=== PATIENT | female | born 1995 ===

== ENCOUNTER 2017-09-05 17:59 | Emergency (ER) | payer MEDICAID ==
[2017-09-05 18:32] VITALS: RESP 18; TEMP 98.5
--- NOTE | 2017-09-05 19:40 | ED PDOC ---
HPI: Female Pain Time Seen by Provider: 09/05/17 19:00 Chief Complaint (Nursing): Female Genitourinary Chief Complaint (Provider): Abdominal pain, vaginal bleeding History Per: Patient History/Exam Limitations: no limitations Onset/Duration Of Symptoms: Days (3 days) Current Symptoms Are (Timing): Constant Quality Of Discomfort: Pressure Associated Symptoms: denies: Urinary Symptoms Additional Complaint(s): Patient is a 22 y/o female who is 5 weeks with a past history of two miscarriages, who presents to the ED complaining of lower abdominal pain described as constant with associated vaginal bleeding, onset 3 days. Patient reports the pain felt like "pressure" since yesterday, and that bleeding became heavier. She denies any urinary symptoms. PCP: FAMILY PROVIDER, NO Abnormal Vaginal Bleeding: Yes Miscarriage: 2 Past Medical History Reviewed: Historical Data, Nursing Documentation, Vital Signs Vital Signs: Last Vital Signs Temp 98.5 F 09/05/17 18:30 Pulse 89 09/05/17 18:30 Resp 18 09/05/17 18:30 BP 123/68 09/05/17 18:30 Pulse Ox 100 09/05/17 18:30 - Medical History PMH: No Chronic Diseases - Surgical History Surgical History: No Surg Hx - Family History Family History: States: No Known Family Hx - Social History Current smoker - smoking cessation education provided: No Ex-Smoker (has not smoked in the last 12 months): Yes (2 cigarettes per day) Alcohol: None - Allergies Allergies/Adverse Reactions: Allergies Allergy/AdvReac Type Severity Reaction Status Date / Time No Known Allergies Allergy Verified 09/05/17 18:29 Review of Systems ROS Statement: Except As Marked, All Systems Reviewed And Found Negative Gastrointestinal: Positive for: Abdominal Pain (lower) Genitourinary Female: Positive for: Vaginal Bleeding. Negative for: Dysuria, Hematuria Physical Exam - Reviewed Nursing Documentation Reviewed: Yes Vital Signs Reviewed: Yes - Physical Exam Appears: Positive for: No Acute Distress Head Exam: Positive for: ATRAUMATIC, NORMOCEPHALIC Skin: Positive for: Normal Color, Warm, Dry Eye Exam: Positive for: Normal appearance, EOMI, PERRL Neck: Positive for: Normal, Painless ROM, Supple Cardiovascular/Chest: Positive for: Regular Rate, Rhythm. Negative for: Murmur Respiratory: Positive for: Normal Breath Sounds. Negative for: Respiratory Distress Gastrointestinal/Abdominal: Positive for: Soft, Tenderness (mild suprapubic tenderness) Back: Positive for: Normal Inspection. Negative for: L CVA Tenderness, R CVA Tenderness, Vertebral Tenderness Extremity: Positive for: Normal ROM. Negative for: Pedal Edema, Deformity Neurologic/Psych: Positive for: Alert, Oriented (x3). Negative for: Motor/ Sensory Deficits - Laboratory Results Result Diagrams: 09/05/17 20:27 09/05/17 20:27 - ECG O2 Sat by Pulse Oximetry: 100 (RA) Pulse Ox Interpretation: Normal Medical Decision Making Medical Decision Making: Time: 19:37 Initial Impression: rule out Threatened AB, ectopic Initial Plan: --Type and screen --BMP --ED Urine --ED Urine Dipstick --CBC --Urinalysis --OB PREG 1st TRI & OB Trnasvag US Time: 23:11 --Pelvic exam performed with Azalia Saavedra rn serving as wireless cellular technician --Small amount of spotting but no clots. Left adnexa is tender on bimanual exam. No CMT Time: 23:58 US TRANSVAG FINDINGS: Gestation: No intrauterine is identified. Uterus/cervix: The uterus measures 6.6 x 3.8 x 5.1 cm. The endometrial stripe measures 1.1 cm. The cervix is closed measuring 3.2 cm. No myometrial mass. Ovaries: Unremarkable. The RIGHT ovary measures 2.9 x 1.4 x 2.0 cm. The LEFT ovary measures 1.8 x 1.4 x 1.7 cm. Duplex assessment demonstrates normal flow in both ovaries. Medial to the RIGHT ovary, there is hyperechoic structure with increased vascularity measuring 1.1 x 1.0 x 1.2 cm Free fluid: No free fluid. IMPRESSION: No intrauterine is identified. Hyperechoic mass medial to the RIGHT ovary raising suspicion for an ectopic . Clinical correlation and surgical consult recommended. --Patient was informed of US results. OB soil fertility extension specialist dr funez was consulted. Time: 00:04 --LFTs added on as per dr funez [id number] dr funez at bedside recommends follow up in 2 days here for repeat bhcg. pt made aware of plan. Scribe Attestation: Documented by Ava Guzman and Emile Briseno, acting as a scribe for Rei Bateman MD Provider Scribe Attestation: All medical record entries made by the Scribe were at my direction and personally dictated by me. I have reviewed the chart and agree that the record accurately reflects my personal performance of the history, physical exam, medical decision making, and the department course for this patient. I have also personally directed, reviewed, and agree with the discharge instructions and disposition. Disposition - Clinical Impression Clinical Impression: Ectopic - Patient ED Disposition Is Patient to be Admitted: No Counseled Patient/Family Regarding: Studies Performed, Diagnosis, Need For Followup - Disposition Referrals: [facility] [Outside] Disposition: Routine/Home Disposition Time: 01:30 Condition: IMPROVED Additional Instructions: follow up here on MONDAY for repeat beta hcg test and also ultrasound return to ED with any worsening or concerning symptoms Instructions: Ectopic (ED) Forms: [employer] (Khmer)
[2017-09-05] MEDS ORDERED: Sodium Chloride 0.9% 1,000 ML IV STA (20:07)
[2017-09-05 20:54] LABS: BASO % 0.4 % (0.0-2.0); EOS % 0.6 % (0.0-4.0); HEMATOCRIT 38.2 % (34.0-47.0); LYMPH # 1.8 K/uL (1.0-4.3); LYMPH % 27.7 % (20.0-40.0); MEAN CELL VOLUME 89.2 fl (81.0-99.0); MEAN CORPUSCULAR HEMOGLOBIN 30.5 pg (27.0-31.0); MEAN CORPUSCULAR HGB CONC 34.2 g/dL (33.0-37.0); MEAN PLATELET VOLUME 9.2 fl (7.2-11.7); MONO # 0.5 K/uL (0.0-0.8); NEUT % 63.3 % (50.0-75.0); RED CELL DISTRIBUTION WIDTH 13.2 % (11.5-14.5); WHITE BLOOD COUNT 6.4 K/uL (4.8-10.8)
[2017-09-05 20:56] LABS: BLOOD UREA NITROGEN 8 mg/dl (7-17); CALCIUM 9.4 mg/dL (8.4-10.2); CARBON DIOXIDE 26 mmol/L (22-30); CHLORIDE 105 mmol/L (98-107); GFR AFRICAN-AMERICAN > 60; GLUCOSE,RANDOM 100 mg/dL (65-105); POTASSIUM 4.1 MMOL/L (3.6-5.0); SODIUM 141 mmol/l (132-148)
[2017-09-05 21:06] LABS: RBC URINE < 1 /hpf (0-3); URINE BACTERIA RARE (<OCC); URINE BILIRUBIN NEGATIVE (NEGATIVE); URINE BLOOD NEGATIVE (NEGATIVE); URINE COLOR YELLOW (YELLOW); URINE GLUCOSE (UA) NEG (Normal); URINE KETONE NEGATIVE (NEGATIVE); URINE LEUKOCYTE ESTERASE NEG Leu/uL (Negative); URINE PROTEIN NEGATIVE (NEGATIVE); URINE UROBILINOGEN 0.2-1.0 mg/dL (0.2-1.0); WBC URINE < 1 /hpf (0-5)
--- NOTE | 2017-09-05 23:58 | US ---
EXAM: US , Transvaginal CLINICAL HISTORY: 22 years old, female; bleeding and pain beta-hCG 1161 TECHNIQUE: Real-time transvaginal obstetrical ultrasound of the maternal pelvis and a first trimester with image documentation. Transvaginal imaging was used for better evaluation of the fetus and adnexa. COMPARISON: No relevant prior studies available. FINDINGS: Gestation: No intrauterine is identified. Uterus/cervix: The uterus measures 6.6 x 3.8 x 5.1 cm. The endometrial stripe measures 1.1 cm. The cervix is closed measuring 3.2 cm. No myometrial mass. Ovaries: Unremarkable. The RIGHT ovary measures 2.9 x 1.4 x 2.0 cm. The LEFT ovary measures 1.8 x 1.4 x 1.7 cm. Duplex assessment demonstrates normal flow in both ovaries. Medial to the RIGHT ovary, there is hyperechoic structure with increased vascularity measuring 1.1 x 1.0 x 1.2 cm Free fluid: No free fluid. IMPRESSION: No intrauterine is identified. Hyperechoic mass medial to the RIGHT ovary raising suspicion for an ectopic . Clinical correlation and surgical consult recommended.
--- NOTE | 2017-09-06 00:57 | CP.PCM.CON ---
<Johana Hilton - Last Filed: 09/06/17 01:16> History of Present Illness - History of Present Illness History of Present Illness: Pt is a 22 y/o female with no significant PMHX presenting to the ED with complaints of vaginal bleeding and abdominal pain x 3days. Pt localizes pain to left lower quadrant, describing it as sharp and radiating to the back, 8/10 in severity, and exacerbated with movement. At the moment, her pain is 0/10. She states vaginal bleeding is equivalent to menstrual period but is unable to quantify pads. On ROS reports mild nausea, no vomiting. Denies fever, chills, dysuria, hematuria, flank pain, lightheadedness, dizziness,or palpitations. Sexual Hx: Currently sexually active with one partner, does not use any form of contraception. LMP 07/27. Last STD test 03/22 negative, denies history of STD 's Review of Systems - Cardiovascular Cardiovascular: absent: Chest Pain, Diaphoresis, Dyspnea, Lightheadedness, Palpitations - Respiratory Respiratory: absent: Cough - Gastrointestinal Gastrointestinal: Abdominal Pain, Nausea. absent: Constipation, Cramping, Diarrhea, Melena, Vomiting - Genitourinary Genitourinary: absent: Dysuria, Flank Pain, Hematuria, Urinary Frequency - Reproductive: Female Reproductive:Female: Normal Menses. absent: Vaginal Discharge - Menstruation Additional comments: LMP 07/27/17 - Neurological Neurological: absent: Dizziness, Weakness Past Patient History - Past Social History Smoking Status: Light Smoker < 10 Cigarettes Daily (2 cigarettes daily) Alcohol: Social Drugs: Denies - GENITOURINARY/GYNECOLOGICAL : 2 (1 prior SAB 1st trimester) Para: 0 - PSYCHIATRIC Hx Substance Use: No - SURGICAL HISTORY Hx Surgeries: No - ANESTHESIA Hx Anesthesia: No Meds Allergies/Adverse Reactions: Allergies Allergy/AdvReac Type Severity Reaction Status Date / Time No Known Allergies Allergy Verified 09/05/17 18:29 - Medications Medications: Current Medications Sodium Chloride (Sodium Chloride 0.9%) 1,000 mls @ 150 mls/hr IV .[id number] STA Stop: 09/06/17 02:46 Last Admin: 09/05/17 20:20 Dose: 150 mls/hr Physical Exam - Constitutional Appears: Well, No Acute Distress - Respiratory Exam Respiratory Exam: Clear to Auscultation Bilateral - Cardiovascular Exam Cardiovascular Exam: REGULAR RHYTHM, +S1, +S2. absent: Systolic Murmur - GI/Abdominal Exam GI & Abdominal Exam: Normal Bowel Sounds, Tenderness (Mild tenderness with deep palpation). absent: Distended, Guarding, Organomegaly, Rebound, Rigid - Exam Speculum exam: NORMAL SPECULUM EXAM (No active bleeding from cervical os, no pooling of blood appreciated, cervix closed) Bimanual exam: NORMAL BIMANUAL EXAM. absent: Cervical Motion Tendernes - Back Exam Back exam: absent: CVA tenderness (L) - Neurological Exam Neurological exam: Alert, Oriented x3 - Psychiatric Exam Psychiatric exam: Anxious Results - Vital Signs Recent Vital Signs: Last Vital Signs Temp 98.5 F 09/05/17 18:30 Pulse 89 09/05/17 18:30 Resp 18 09/05/17 18:30 BP 123/68 09/05/17 18:30 Pulse Ox 100 09/06/17 00:01 - Labs Result Diagrams: 09/05/17 20:27 09/05/17 20:27 Labs: Laboratory Results - last 24 hr 09/05/17 09/05/17 09/05/17 20:15 20:27 20:27 WBC 6.4 RBC 4.28 Hgb 13.1 Hct 38.2 MCV 89.2 MCH 30.5 MCHC 34.2 RDW 13.2 Plt Count 246 MPV 9.2 Neut % (Auto) 63.3 Lymph % (Auto) 27.7 Floyd % (Auto) 8.0 Eos % (Auto) 0.6 Baso % (Auto) 0.4 Neut # 4.0 Lymph # 1.8 Floyd # 0.5 Eos # 0.0 Baso # 0.0 Sodium 141 Potassium 4.1 Chloride 105 Carbon Dioxide 26 Anion Gap 15 BUN 8 Creatinine 0.6 L Est GFR ( Amer) > 60 Est GFR (Non-Af Amer) > 60 Random Glucose 100 Calcium 9.4 Beta HCG, Quant Urine Color Urine Clarity Urine pH Ur Specific [facility] Urine Protein Urine Glucose (UA) Urine Ketones Urine Blood Urine Nitrate Urine Bilirubin Urine Urobilinogen Ur Leukocyte Esterase Urine RBC (Auto) Urine Microscopic WBC Ur Squamous Epith Cells Urine Bacteria Blood Type O POSITIVE Antibody Screen Negative BBK History Checked No verified bt 09/05/17 09/05/17 20:27 22:40 WBC RBC Hgb Hct MCV MCH MCHC RDW Plt Count MPV Neut % (Auto) Lymph % (Auto) Floyd % (Auto) Eos % (Auto) Baso % (Auto) Neut # Lymph # Floyd # Eos # Baso # Sodium Potassium Chloride Carbon Dioxide Anion Gap BUN Creatinine Est GFR ( Amer) Est GFR (Non-Af Amer) Random Glucose Calcium Beta HCG, Quant 1161.30 Urine Color Yellow Urine Clarity Clear Urine pH 6.0 Ur Specific [facility] 1.012 Urine Protein Negative Urine Glucose (UA) Neg Urine Ketones Negative Urine Blood Negative Urine Nitrate Negative Urine Bilirubin Negative Urine Urobilinogen 0.2-1.0 Ur Leukocyte Esterase Neg Urine RBC (Auto) < 1 Urine Microscopic WBC < 1 Ur Squamous Epith Cells 3 Urine Bacteria Rare Blood Type Antibody Screen BBK History Checked Assessment & Plan - Assessment and Plan (Free Text) Assessment: 22 y/o female with no significant PMHx presents to ED with 3 day history of left lower quadrant pain and vaginal bleeding. #Vaginal Bleeding associated w/ abdominal pain -H/H stable and wnl, vital signs stable, currently pain is tolerated with Tylenol -No signs of an acute abdomen; physical exam unimpressive -Positive DIP, BhCG elevated at 11,61 -Transvaginal US impression: No intrauterine identified, normal flow in both ovaries, +hyperechoic mass medial to right ovary identified raising suspicion for ectopic (see report) -Symptoms are likely 2/2 to Threatened vs Ecotpic . Will need to re-evaluate BhCG levels in 48 hours and repeat transvaginal US. Discussed at length with patients the likely etiologies and advised her to return in 2-3 days to be re-evaluated. ER precautions given: excessive bleeding or pain, needs to return to ER. Pt verbalized understanding with boyfriend at bedside. <Javan Ozuna - Last Filed: 09/06/17 08:57> Results - Vital Signs Recent Vital Signs: Last Vital Signs Temp 98.5 F 09/05/17 18:30 Pulse 78 09/06/17 01:17 Resp 18 09/06/17 01:17 BP 122/60 09/06/17 01:17 Pulse Ox 100 09/06/17 05:12 - Labs Result Diagrams: 09/05/17 20:27 09/05/17 20:27 Labs: Laboratory Results - last 24 hr 09/05/17 09/05/17 09/05/17 20:15 20:27 20:27 WBC 6.4 RBC 4.28 Hgb 13.1 Hct 38.2 MCV 89.2 MCH 30.5 MCHC 34.2 RDW 13.2 Plt Count 246 MPV 9.2 Neut % (Auto) 63.3 Lymph % (Auto) 27.7 Floyd % (Auto) 8.0 Eos % (Auto) 0.6 Baso % (Auto) 0.4 Neut # 4.0 Lymph # 1.8 Floyd # 0.5 Eos # 0.0 Baso # 0.0 Sodium 141 Potassium 4.1 Chloride 105 Carbon Dioxide 26 Anion Gap 15 BUN 8 Creatinine 0.6 L Est GFR ( Amer) > 60 Est GFR (Non-Af Amer) > 60 Random Glucose 100 Calcium 9.4 Total Bilirubin Direct Bilirubin AST ALT Alkaline Phosphatase Total Protein Albumin Globulin Albumin/Globulin Ratio Beta HCG, Quant Urine Color Urine Clarity Urine pH Ur Specific [facility] Urine Protein Urine Glucose (UA) Urine Ketones Urine Blood Urine Nitrate Urine Bilirubin Urine Urobilinogen Ur Leukocyte Esterase Urine RBC (Auto) Urine Microscopic WBC Ur Squamous Epith Cells Urine Bacteria Blood Type O POSITIVE Antibody Screen Negative BBK History Checked No verified bt 09/05/17 09/05/17 09/06/17 20:27 22:40 01:10 WBC RBC Hgb Hct MCV MCH MCHC RDW Plt Count MPV Neut % (Auto) Lymph % (Auto) Floyd % (Auto) Eos % (Auto) Baso % (Auto) Neut # Lymph # Floyd # Eos # Baso # Sodium Potassium Chloride Carbon Dioxide Anion Gap BUN Creatinine Est GFR ( Amer) Est GFR (Non-Af Amer) Random Glucose Calcium Total Bilirubin 0.4 Direct Bilirubin 0.3 AST 48 H ALT 19 Alkaline Phosphatase 62 Total Protein 7.6 Albumin 4.5 Globulin 3.1 Albumin/Globulin Ratio 1.5 Beta HCG, Quant 1161.30 Urine Color Yellow Urine Clarity Clear Urine pH 6.0 Ur Specific [facility] 1.012 Urine Protein Negative Urine Glucose (UA) Neg Urine Ketones Negative Urine Blood Negative Urine Nitrate Negative Urine Bilirubin Negative Urine Urobilinogen 0.2-1.0 Ur Leukocyte Esterase Neg Urine RBC (Auto) < 1 Urine Microscopic WBC < 1 Ur Squamous Epith Cells 3 Urine Bacteria Rare Blood Type Antibody Screen BBK History Checked Assessment & Plan - Assessment and Plan (Free Text) Plan: Ob hosptialist note. I saw and examined this pt with PGY1 agree with note monalisa PE: in NAD, resting comfortably since 6pm in ER. Abd no acute abdomen Pelvic done with PGY1 - agree with note. Medical conditoin explained to pt and her partner. They understand about the possibility of ectopic preg and its risks/complications - incl possible laparoscopy. She will come back if she has more pain. Otherwise, she will follow up in 2-3d for repeat BHCG...if doubling repeat sono. Copy of results given to pt. - Date & Time Date: 09/06/17 Time: 08:55 (Pt seen last night (late entry))
[2017-09-06 01:18] VITALS: BP 122/60; PULSE 78
[2017-09-06 01:18] LABS: ALB/GLOB RATIO 1.5 (1.0-2.1); BILIRUBIN,TOTAL 0.4 mg/dl (0.2-1.3); TOTAL PROTEIN 7.6 G/DL (6.3-8.2)
[2017-09-06 05:13] VITALS: O2SAT 100
== END 2017-09-06 01:33 | disposition home or self-care (01) ==
LOC: H.ER 17:59
DX: O00.90 Unspecified ectopic pregnancy without intrauterine pregnancy (principal)
CPT/HCPCS: 76817; 80048; 80076; 81003; 81025; 84702; 85025; 86850; 86900; 96360; 96361; 99284; J7040